=== PATIENT | female | born 1970 | race African-American/Black ===

== ENCOUNTER 2017-03-22 07:15 | Inpatient (IN) | payer BC, OTHER ==
[2017-04-18 11:51] LABS: APPEARANCE,URINE CLEAR; BILIRUBIN,URINE NEGATIVE (NEGATIVE); COLOR,URINE YELLOW; GLUCOSE, URINE NEGATIVE (NEGATIVE); KETONES,URINE NEGATIVE (NEGATIVE); LEUKOCYTE ESTERASE,URINE NEGATIVE (NEGATIVE); NITRITE,URINE NEGATIVE (NEGATIVE); PROTEIN,URINE NEGATIVE (NEGATIVE); URINE SPECIFIC GRAVITY 1.021; UROBILINOGEN,URINE NEGATIVE mg/dL (<2.0)
[2017-04-18 12:42] LABS: HEMATOCRIT 33.7 % (36.0-47.0); HEMOGLOBIN 10.6 g/dL (12.0-15.5); MEAN CORPUSCULAR HEMOGLOBIN 25.1 pg (27.0-33.4); MEAN CORPUSCULAR HGB CONC 31.4 g/dL (32.0-36.0); MEAN CORPUSCULAR VOLUME 80 fl (80-97); PLATELET COUNT 370 10^3/uL (150-450); RED BLOOD COUNT 4.22 10^6/uL (3.72-5.28); RED CELL DISTRIBUTION WIDTH 18.1 % (11.5-14.0); WHITE BLOOD COUNT 5.5 10^3/uL (4.0-10.5)
--- NOTE | 2017-04-18 12:46 | RADIOLOGY REPORT (SQ) ---
EXAM DESCRIPTION: CHEST PA/LATERAL COMPLETED DATE/TIME: 04/18/2017 12:35 pm REASON FOR STUDY: PRE OP COMPARISON: 11/12/2012 EXAM PARAMETERS: NUMBER OF VIEWS: two views TECHNIQUE: Digital Frontal and Lateral radiographic views of the chest acquired. RADIATION DOSE: NA LIMITATIONS: none FINDINGS: LUNGS AND PLEURA: No opacities, masses or pneumothorax. No pleural effusion. MEDIASTINUM AND HILAR STRUCTURES: No masses or contour abnormalities. HEART AND VASCULAR STRUCTURES: Heart normal size. No evidence for failure. BONES: No acute findings. HARDWARE: None in the chest. OTHER: No other significant finding. IMPRESSION: NO SIGNIFICANT RADIOGRAPHIC FINDING IN THE CHEST. TECHNICAL DOCUMENTATION: JOB ID: [id number] [email or web address] All Rights Reserved
[2017-04-18 13:05] LABS: ANION GAP 9 (5-19); BLOOD UREA NITROGEN 12 mg/dL (7-20); CALCIUM 9.1 mg/dL (8.4-10.2); CARBON DIOXIDE 26 mmol/L (22-30); CHLORIDE 104 mmol/L (98-107); GLUCOSE 77 mg/dL (75-110); POTASSIUM 4.2 mmol/L (3.6-5.0)
--- NOTE | 2017-04-18 20:21 | EKG REPORT ---
SEVERITY:- NORMAL ECG - SINUS RHYTHM : Confirmed by: Nam Vasques 18-Apr-2017 20:20:57
[2017-04-20] MEDS ORDERED: GENTAMICIN SULFATE 60 MG in DEXTROSE 5%-WATER 100 ML IV PRN (05:00)
[2017-04-20] MEDS ORDERED: CLINDAMYCIN 300 MG/D5W RTU 300 MG/50 ML RTUPB IV PRN (05:00)
[2017-04-20] MEDS ORDERED: LIDOCAINE 0.5% INJ-PF (5 MG/ML) 50 ML SDV SUBCUT PRN (05:00)
[2017-04-20] MEDS ORDERED: CLINDAMYCIN 600 MG/D5W RTU 600 MG/50 ML RTUPB IV PRN (05:00)
[2017-04-20] MEDS ORDERED: BUPIVACAINE INJ/PF LIPOSOME/PF 266 MG/20 ML SDV ONE (08:45)
[2017-04-20] MEDS ORDERED: LIDOCAINE 2% INJ-PF (20 MG/ML) 10 ML AMPUL ONE (09:28)
[2017-04-20] MEDS ORDERED: DEXAMETHASONE SOD PHOSPHATE INJ 4 MG/1 ML VIAL ONE (09:29)
[2017-04-20] MEDS ORDERED: FENTANYL CITRATE INJ/PF 100 MCG/2 ML AMPUL ONE ×2 (09:29→12:08)
[2017-04-20] MEDS ORDERED: PROPOFOL INJ 200 MG/20 ML VIAL IV ONE (09:29)
[2017-04-20] MEDS ORDERED: ACETAMINOPHEN 100 ML IV ONE (09:29)
[2017-04-20] MEDS ORDERED: MIDAZOLAM 2 MG/2 ML INJ ONE (09:29)
[2017-04-20] MEDS ORDERED: ONDANSETRON HCL INJ/PF 4 MG/2 ML SDV ONE (09:29)
[2017-04-20] MEDS ORDERED: KETOROLAC TROMETHAMINE 60 MG/2 ML SDV ONE (09:29)
[2017-04-20] MEDS ORDERED: EPHEDRINE SULFATE INJ 50 MG/1 ML AMPULE ONE (09:30)
[2017-04-20] MEDS ORDERED: HYDROMORPHONE HCL INJ/PF 2 MG/ML AMPULE ONE (09:30)
[2017-04-20] MEDS ORDERED: DIPHENHYDRAMINE HCL 50 MG/ML VIAL IV PRN (10:35)
[2017-04-20] MEDS ORDERED: ONDANSETRON HCL INJ/PF 4 MG/2 ML SDV IV PRN (10:35)
[2017-04-20] MEDS ORDERED: FENTANYL CITRATE INJ/PF 100 MCG/2 ML AMPUL IV PRN ×3 (10:35)
[2017-04-20] MEDS ORDERED: MORPHINE SULFATE 10 MG/ML INJ IV PRN ×3 (10:35→12:35)
[2017-04-20] MEDS ORDERED: PROMETHAZINE HCL INJ 25 MG/1 ML VIAL IV PRN ×2 (10:35)
[2017-04-20] MEDS ORDERED: MEPERIDINE HCL/PF INJ 25 MG/1 ML DISP.SYRIN IV PRN (10:35)
--- NOTE | 2017-04-20 12:14 | OPERATIVE REPORT E ---
Operative Report NAME: STEVE NUR : 1970 AGE: 47Y DATE OF SURGERY: 04/20/2017 ROOM: OR PREOPERATIVE DIAGNOSIS: Uterine leiomyoma, pelvic adhesions. POSTOPERATIVE DIAGNOSIS: Uterine leiomyoma, pelvic adhesions. PROCEDURE: Exploratory laparotomy, supracervical hysterectomy, lysis of adhesions. SURGEON: BEATRIS MARTINI M.D. ANESTHESIA: General endotracheal. COMPLICATIONS: None. FINDINGS: That of approximately 30-week size uterus. Normal tubes and ovaries are appreciated. Normal cervix was encountered. INDICATIONS FOR PROCEDURE: The patient had had a long history of uterine leiomyoma and previous myomectomy and a previous desire for fertility. She has resolved that concern and desires definitive treatment for the fibroids. The usual risks of bleeding, infection, anesthesia, damage to organs or tissues were discussed with the patient who understood. The patient understood preoperatively the possibility of retaining the cervix should the case become complicated and as indicated. PROCEDURE: Patient was taken to the operating room and placed in a modified lithotomy position. Adequate anesthesia was ascertained. She was prepped and draped in the usual manner for an exploratory laparotomy. After a surgical time out was performed EUA was performed. Colon catheter had been inserted. Through a midline incision extended to subcutaneous fat and fascia, the peritoneum was entered without difficulty. The adhesions were encountered on the anterior wall and to the umbilicus. These were lysed to normalize anatomy and included small bowel and omentum only. The filmy adhesions were broken up and normal anatomy was identified. The uterus was allowed to be brought into the operative field and exteriorized. The upper pedicles were then suture ligated, free tied and cauterized down to the level of the uterine vessels bilaterally. Bladder flap was developed and reflected anteriorly. Given an approximately 300 mL blood loss and the extensive lysis of adhesions, it was elected to proceed to a supracervical hysterectomy as she is 5 feet 1 inch tall and has a rather deep pelvis with a long cervix. The cervix was identified with Amarilis clamps and the uterus inclusive of all the uterine leiomyoma was amputated from the cervix. The specimen was handed off the operative field and photographed. The cervix was then closed with interrupted #1 chromic catgut in multiple fashion. Good immediate hemostasis was noted at all pedicles. Ureters were noted to be well out of the operative field as the uterus was exteriorized. Examination of the small bowel throughout demonstrated no serosal involvement. Good hemostasis was noted and good pink blood flow and nice spencer glistening tissue noted throughout the small bowel on exam. The parietal peritoneum was noted to be dry. The rectus fascia was closed with double-stranded PDS suture. Birgit fascia layer was closed with plain gut and the skin approximated with skin jolene. The patient tolerated the procedure well. All sponge and needle counts correct. DICTATING PHYSICIAN: BEATRIS MARTINI M.D. [id number] PHY#: [id number] ID: [id number] JOB#: [id number] ACCT: [id number] cc:BEATRIS MARTINI M.D. >
[2017-04-20] MEDS ORDERED: MORPHINE SULFATE 10 MG/ML INJ IM PRN (12:36)
[2017-04-20] MEDS ORDERED: PROMETHAZINE HCL INJ 25 MG/1 ML VIAL IM PRN ×2 (12:37→14:00)
[2017-04-20] MEDS ORDERED: HYDROMORPHONE HCL INJ/PF 2 MG/ML AMPULE IM PRN (12:44)
[2017-04-20] MEDS ORDERED: CETIRIZINE 10 MG TABLET PO PRN (13:30)
[2017-04-20] MEDS ORDERED: ALBUTEROL SULFATE HFA (90 MCG/PUFF) 200 PUFF/8.5 GM MDI IH PRN (13:45)
[2017-04-20] MEDS: HYDROMORPHONE HCL 2 MG TABLET PO PRN ×2 (13:45→23:49)
[2017-04-20] MEDS: IBUPROFEN 800 MG TABLET PO SCH ×2 (13:45→21:33)
[2017-04-20] MEDS ORDERED: MORPHINE INJ 4 MG DOSE (EDIT ROUTE) INJ PRN (14:00)
[2017-04-20] MEDS ORDERED: GLYCOPYRROLATE INJ 0.4 MG/2 ML VIAL ONE (14:00)
[2017-04-20] MEDS ORDERED: VECURONIUM BROMIDE INJ 10 MG VIAL IV ONE (14:00)
[2017-04-20] MEDS ORDERED: NEOSTIGMINE METHYLSULFATE 10 MG/10 ML VIAL ONE (14:00)
[2017-04-20] MEDS ORDERED: MORPHINE INJ 6 MG DOSE (EDIT ROUTE) INJ PRN (14:00)
[2017-04-20] MEDS ORDERED: MORPHINE INJ 8 MG DOSE IM PRN (14:00)
[2017-04-20] MEDS ORDERED: SUCCINYLCHOLINE CHLORIDE INJ 200 MG/10 ML VIAL ONE (14:00)
[2017-04-20] MEDS: LACTATED RINGERS 1000 ML IV PRN ×2 (15:24→23:50)
[2017-04-20] MEDS ORDERED: MONTELUKAST SODIUM 10 MG TABLET PO SCH (22:00)
[2017-04-21] MEDS ORDERED: LANSOPRAZOLE 15 MG TAB.RAP.DR PO SCH (06:00)
[2017-04-21] MEDS: IBUPROFEN 800 MG TABLET PO SCH (06:03)
[2017-04-21 06:42] LABS: HEMATOCRIT 23.2 % (36.0-47.0); MEAN CORPUSCULAR HEMOGLOBIN 25.2 pg (27.0-33.4); MEAN CORPUSCULAR HGB CONC 32.3 g/dL (32.0-36.0); MEAN CORPUSCULAR VOLUME 78 fl (80-97); PLATELET COUNT 303 10^3/uL (150-450); RED BLOOD COUNT 2.96 10^6/uL (3.72-5.28); RED CELL DISTRIBUTION WIDTH 17.9 % (11.5-14.0)
[2017-04-21 06:49] LABS: HEMOGLOBIN 7.5 g/dL (12.0-15.5); WHITE BLOOD COUNT 11.2 10^3/uL (4.0-10.5)
[2017-04-21 12:19] VITALS: BP 130/51
--- NOTE | 2017-04-21 14:03 | DISCHARGE SUMMARY E ---
Discharge Summary NAME: STEVE NUR : 1970 AGE: 47Y ADMITTED: 04/20/2017 DISCHARGED: 04/21/2017 PREOPERATIVE DIAGNOSIS: Uterine leiomyoma. SUMMARY: This is a 47-year-old female admitted for definitive treatment for a symptomatic fibroid uterus. Patient was same-day admission, a late start due to snow, for exploratory laparotomy via midline incision. Noted was a large approximately 30-week sized uterus with supracervical hysterectomy. Tubes and ovaries were noted to be normal. . Lysis of adhesions was performed on the anterior wall . Postoperatively the patient did well and has tolerated a regular diet. . Incision was clean. Postoperative hematocrit and hemoglobin was obtained at 7.8 and hematocrit 24. . She was discharged in 24 hours. She is to return to the office in 1 week. DICTATING PHYSICIAN: BEATRIS MARTINI M.D. [id number] PHY#: [id number] ID: [id number] JOB#: [id number] ACCT: [id number] cc:BEATRIS MARTINI M.D. >
== END 2017-04-21 13:00 | disposition home or self-care (01) | DRG 743 ==
LOC: INOR 04-20 08:05 → 2S 04-20 12:56
PROVIDERS: ADMIT Specialist; ATTEND Specialist
PROC: 0UN40ZZ Release Uterine Supporting Structure, Open Approach (ICD-10-PCS; 2017-04-20)
PROC: 0UT90ZL Resection of Uterus, Supracervical, Open Approach (ICD-10-PCS; principal; 2017-04-20 10:00)
DX: D25.9 Leiomyoma of uterus, unspecified (principal); N73.6 Female pelvic peritoneal adhesions (postinfective); N83.209 Unspecified ovarian cyst, unspecified side; Z88.0 Allergy status to penicillin; Z88.8 Allergy status to other drugs, medicaments and biological substances; Z91.030 Bee allergy status
CPT/HCPCS: 36415; 71046; 80048; 81001; 81025; 840; 85027; 86850; 86900; 86901; 88307; 93005; 93010; 94799; C9290; J0131; J0330; J1100; J1170; J1580; J1885; J2250; J2405; J2550; J2704; J3010; J3490; J7120